=== PATIENT | female | born 1985 | race Caucasian/White ===

== ENCOUNTER 2018-08-27 21:34 | Emergency (ER) | payer OTHER ==
[~2018-08-27] VITALS: Ht 170.2 cm; Wt 63.6 kg
[~2018-08-27 21:34] MED LIST: ALBU8.5H3 IH; LORA2TAB2 PO
[2018-08-27] MEDS ORDERED: LORazepam 1 MG TABLET PO ONE (22:30)
[2018-08-27] MEDS ORDERED: ACETAMINOPHEN 500 MG TABLET PO ONE (22:30)
[2018-08-27 22:45] VITALS: BP 132/90
== END 2018-08-27 22:53 | disposition home or self-care (01) ==
LOC: EMS 21:37
DX: F41.9 Anxiety disorder, unspecified (principal); F15.10 Other stimulant abuse, uncomplicated; J45.909 Unspecified asthma, uncomplicated; Z79.899 Other long term (current) drug therapy

== ENCOUNTER 2021-08-31 04:16 | Emergency (ER) | payer OTHER ==
[~2021-08-31] VITALS: Ht 154.9 cm; Wt 69.1 kg
[~2021-08-31 04:16] MED LIST changes: -LORA2TAB2 PO
[2021-08-31] MEDS ORDERED: ALBUTEROL SULFATE HFA 90 MCG/PUFF 8 GM INHALER IH ONE (06:15)
[2021-08-31] MEDS ORDERED: ALBU8HFA IH (06:29)
[2021-08-31 06:30] VITALS: BP 119/74
== END 2021-08-31 07:00 | disposition home or self-care (01) ==
LOC: EMS 04:22
DX: J45.909 Unspecified asthma, uncomplicated (principal); F41.9 Anxiety disorder, unspecified; F19.90 Other psychoactive substance use, unspecified, uncomplicated
CPT/HCPCS: 94640; 99283; J3535